=== PATIENT | male | born 1975 | race Two or more races ===

== ENCOUNTER 2023-02-09 16:31 | Emergency (ER) | payer OTHER ==
[~2023-02-09] VITALS: Ht 172.7 cm; Wt 129.3 kg
[~2023-02-09 16:31] MED LIST: AMOX1TAB12 PO; CEFTIN250 MG PO; CLONAZEPAM2 MG; KETO10TA2 PO; PAXIL10 MG/5 ML; PROZAC20 MG; PROZAC40 MG; RISPERDAL1 MG PO; SEROQUEL300 MG; TUSSI PRES-B L120 M1 PO
[2023-02-09] MEDS ORDERED: CLONAZEPAM0.5 MG PO (17:19)
[2023-02-09] MEDS ORDERED: DIVALPROEX SOD125 MG (17:20)
[2023-02-09 18:48] LABS: HEMATOCRIT 44.1 % (39.0-48.0); MEAN CELL VOLUME 72.6 fL (80.0-100.00); MEAN CORPUSCULAR HGB CONC 31.6 g/dl (32.0-36.0); PLATELET COUNT 271 K/uL (150-450); RED BLOOD COUNT 6.08 M/uL (4.00-6.00); RED CELL DISTRIBUTION WIDTH 15.2 % (11.5-14.5)
== END 2023-02-09 19:22 | disposition home or self-care (01) ==
LOC: ER 16:31
PROVIDERS: General Practice
DX: U07.1 COVID-19 (principal)